=== PATIENT | male | born 1985 | race Caucasian/White ===

== ENCOUNTER 2022-05-28 09:18 | Emergency (ER) | payer BC, MEDICAID ==
[~2022-05-28] VITALS: Ht 180.3 cm; Wt 82.1 kg
[2022-05-28 09:21] VITALS: BP_SYST 139
--- NOTE | 2022-05-28 09:40 | NUR ---
MD PAULINO AT BEDSIDE FOR ASSESS. PT STEPPED OUT WITH WALKER TO TALK TO PATIENTS WITH MD PAULINO. PT ELOPED AFTER DISCUSSION WITH MD IN LOBBY. WRIST BAND REMOVED. PT AAOX4. VSS. END OF CARE.
[2022-05-28 09:45] VITALS: BP_SYST 134
== END 2022-05-28 09:45 | disposition left against medical advice (07) ==
LOC: SED 09:18
DX: M54.50 Low back pain, unspecified (principal); Z79.899 Other long term (current) drug therapy
CPT/HCPCS: 99281